=== PATIENT | male | born 1960 | race Caucasian/White ===

== ENCOUNTER → 2018-12-06 11:43 | Outpatient (CLI) | payer OTHER, SELFPAY ==
[2018-12-06 12:48] LABS: HEMOLYSIS < 15 (0-50); Potassium 4.8 mmol/L (3.4-5.1)
[2018-12-06 12:51] LABS: Alanine Aminotransferase 29 IU/L (21-72); Albumin Globulin Ratio 1.7 (1.0-2.8); Alkaline Phosphatase 61 U/L (38-126); Aspartate Aminotransferase 19 IU/L (17-59); Bilirubin Total 0.5 mg/dL (0.2-1.3); Blood Urea Nitrogen 21 mg/dL (9-20); C-Reactive Protein Quant 1.3 mg/dL (<1.0); Calcium 9.1 mg/dL (8.4-10.2); Carbon Dioxide 28 mmol/L (22-32); Chloride 105 mmol/L (98-107); Estimated Glomerular Filt Rate > 60.0 mL/min (>60); Globulin 2.4 g/dL (1.7-4.1); Glucose 92 mg/dL (70-100); Sodium 141 mmol/L (137-145); Total Protein 6.4 g/dL (6.3-8.2)
[2018-12-06 13:18] LABS: TSH w/ Reflex to FT4 1.95 uIU/mL (0.47-4.68)
[2018-12-10 21:58] LABS: Testosterone Free 39.9 pg/mL (35.0-155.0); Testosterone Total 360 ng/dL (250-1100)
== END ==
PROVIDERS: PCP Internal Medicine; Visit Provider Internal Medicine
DX: I10 Essential (primary) hypertension (principal); M06.9 Rheumatoid arthritis, unspecified; N52.9 Male erectile dysfunction, unspecified
CPT/HCPCS: 36415; 80053; 84402; 84403; 84443; 86140

== ENCOUNTER → 2021-09-01 08:32 | Outpatient (CLI) | payer OTHER, SELFPAY ==
[2021-09-01 09:46] LABS: Alanine Aminotransferase 22 IU/L (<50); Albumin 4.3 g/dL (3.5-5.0); Albumin Globulin Ratio 2.2 (1.0-2.8); Alkaline Phosphatase 71 U/L (38-126); Aspartate Aminotransferase 28 IU/L (17-59); BUN Creatinine Ratio 20.8 (6-22); Bilirubin Total 1.2 mg/dL (0.2-1.3); Blood Urea Nitrogen 16 mg/dL (9-20); Calcium 9.1 mg/dL (8.4-10.2); Carbon Dioxide 26 mmol/L (22-32); Chloride 101 mmol/L (98-107); Cholesterol 163 mg/dL (140-199); Estimated Glomerular Filt Rate > 60.0 mL/min (>60); Glucose 103 mg/dL (80-110); HDL Cholesterol 70 mg/dL (40-60); HEMOLYSIS < 15 (0-50); LDL Cholesterol Calculated 79 mg/dL (<100); Potassium 4.6 mmol/L (3.4-5.1); Sodium 135 mmol/L (137-145); Total Protein 6.3 g/dL (6.3-8.2); Triglycerides 69 mg/dL (35-150)
[2021-09-01 10:17] LABS: Prostate Specific Antigen Scrn 2.28 ng/mL (0.1-4.0)
== END ==
PROVIDERS: Family Provider Internal Medicine; PCP Internal Medicine; Referring Provider Internal Medicine; Visit Provider Internal Medicine
DX: I10 Essential (primary) hypertension (principal); I48.91 Unspecified atrial fibrillation; R73.9 Hyperglycemia, unspecified; Z12.5 Encounter for screening for malignant neoplasm of prostate
CPT/HCPCS: 36415; 80053; 80061; G0103

== ENCOUNTER 2021-11-15 07:04 | Day surgery (SDC) | payer OTHER, SELFPAY ==
[2021-11-15] VITALS (7 sets, daily range): BP systolic 122–162; BP diastolic 63–93; PULSE 66–103; RESP 13–17; TEMP 36.3–36.8; O2SAT 93–98; BMI 33.4
--- NOTE | 2021-11-15 | PATH_ITS ---
[facility] Accession Number: [id number] . 01 Material submitted: . colon - ASCENDING COLON POLYP . 01 Clinical history: . SCREENING COLONOSCOPY . 02 Diagnosis: Ascending Colon Polyp, Biopsy: Tubular adenoma. MRV 11/17/2021 1152 Local . 02 Electronically signed: . Toni Dodson MD, PhD, Pathologist NPI- [id number] . 01 Gross description: . ASCENDING COLON POLYP: Received in formalin is 1 fragment(s) of enrique, soft tissue measuring 0.2 x 0.2 x 0.2 cm submitted entirely in 1 cassette(s) /MICHELE 11/16/2021 1909 Local . 02 Pathologist provided ICD-10: D12.2 . 02 CPT . 747644 Specimen Comment: A duplicate report has been generated due to demographic updates. Performed at: [facility] [address] [id number] MD Drew Rascon MD Phone: [phone] [facility] [address] [place], [place] [id number] MD Kezia Gold MD Phone: [phone]
[2021-11-15 07:32] LABS: COVID19 -Nasal RAPID Negative (Negative)
[2021-11-15] MEDS: LACTATED RINGERS 1,000 ML 42 ML IV (08:09)
--- NOTE | 2021-11-15 08:15 | PM.HP.1 ---
History of Present Illness History of Present Illness Date Patient Seen: 11/15/21 Time Patient Seen: 08:15 Chief complaint: SCREENING COLONOSCOPY Narrative: The patient presents for colorectal sreening. He had previous colonoscopy 10 years ago which demonstrated benign polyps. No personal or family history of colon cancer. On further history denies any recent gastrointestinal symptoms. No nausea, vomiting, abdominal pain, loss of appetite, unexplained weight loss, change in bowel habits, diarrhea, constipation, melena, hematochezia, or bright red blood per rectum. Patient History Medical History (Updated 11/15/21 @ 07:27 by Laurence Lam RN) Anxiety Atrial fibrillation (06/11/11) Atrial flutter (01/27/17) Cough Depression Depression as late effect of cerebrovascular accident (CVA) Dysthymia (06/11/11) Hyperglycemia (01/27/17) Hypertension (05/26/14) Kidney stone Rheumatoid arthritis (01/27/17) Skin cancer Sleep apnea SOB (shortness of breath) Surgical History History of cardiac radiofrequency ablation (RFA) History of carpal tunnel repair Family & Social History Social History: household members spouse Tobacco & Substance use: Tobacco type cigarettes Smoking Status Former smoker alcohol intake current alcohol intake frequency 3 or more drinks per day Substance Use Type does not use Meds Home Medications and Allergies Home Medications Medication Instructions Recorded Confirmed Type cholecalciferol (vitamin D3) 50 2,000 unit PO DAILY 04/05/18 11/15/21 History mcg (2,000 unit) capsule sildenafil 100 mg tablet (Viagra) See Rx Instructions PO ONCE PRN #5 01/04/19 09/07/21 Rx tab valacyclovir 1 gram tablet 1,000 mg PO TID #30 tab 01/04/19 09/07/21 Rx alprazolam 0.5 mg tablet 0.5 - 1 mg PO Q6HP PRN #10 tab 09/07/21 11/15/21 Rx atenolol 50 mg tablet 25 mg PO DAILY tab 09/07/21 11/15/21 History dabigatran etexilate 150 mg 150 mg PO BID cap 09/07/21 11/15/21 History capsule (Pradaxa) flecainide 150 mg tablet 150 mg PO BID tab 09/07/21 11/15/21 History folic acid 1 mg tablet 1 mg PO DAILY tab 09/07/21 11/15/21 History hydroxychloroquine 200 mg tablet 400 mg PO DAILY tab 09/07/21 11/15/21 History methotrexate sodium 2.5 mg tablet See Rx Instructions .ROUTE .COMPLEX 09/07/21 11/15/21 History sulfasalazine 500 mg tablet 1 g PO BID tab 09/07/21 09/07/21 History Allergies Allergy/AdvReac Type Severity Reaction Status Date / Time Naproxen Allergy Intermediate RASH Uncoded 11/15/21 07:28 Exam Vital Signs (past 8 hours): - 11/15/21 07:59 Temperature 98.2 F Pulse Rate 103 H Respiratory Rate 15 Blood Pressure 162/63 H Pulse Oximetry 98 Oxygen Delivery Method Room Air Narrative Exam Narrative: Constitutional-he is oriented to person, place and time. No apparent distress Cardiovascular- regular rate, no peripheral edema Pulmonary-unlabored respiratory effort, no audible wheezing Abdominal-soft, non-tender, non-distended Musculoskeletal-no cyanosis or clubbing Skin-warm and dry Objective Labs Labs: Laboratory Results - last 24 hr 11/15/21 07:16 SARS-CoV-2 (PCR) Negative Assessment & Plan Assessment & Plan narrative: The patient requires colorectal screening and colonoscopy is recommended. Technical details were discussed. Risks, benefits, alternatives explained. Risks including but not limited to myocardial infarction, aspiration, bleeding, pain, missed lesion, incomplete examination, need for further radiographic studies, colonic perforation, and need for major abdominal surgery were discussed. All questions were answered to their satisfaction, and they are in agreement with this plan. Time Spent With Patient Critical Care time: I spent a total of [] minutes of critical care time on this patient's care today; this time is exclusive of procedural time.
[2021-11-15] MEDS: MIDAZOLAM 5 MG/5 ML VIAL IV (08:24)
[2021-11-15] MEDS: fentaNYL 250 MCG/5 ML INJ IV (08:32)
--- NOTE | 2021-11-15 08:44 | PM.OP.COLON ---
Operative Date/Time/Diagnoses Date of procedure: 11/15/21 Time of procedure: 08:44 Pre-op diagnosis: screening colonoscopy Post-op diagnosis: other (Colonic polyp) Procedure & Clinicians Study performed: Colonoscopy and polypectomy Same procedure as scheduled: Yes Indications: Screening Surgeon: Julian Degroot Procedure Notes Procedure in detail: Medications: Conscious sedation using 5 mg IV midazolam and 150 mcg IV of fentanyl The history and physical was performed/updated and the patient is ASA class is 2. The procedure was discussed in detail with the patient. Potential risks complications including infection, bleeding, missed diagnosis, perforation, need for surgery, and were explained. Their questions were answered and informed consent was obtained. Patient was brought to the procedure room and placed standard monitoring equipment. The patient's vital signs were monitored continuously throughout the entire procedure. Prior to starting time-out was performed. The patient was placed in the left lateral recumbent position. Procedural sedation was administered. Examination began with a thorough inspection of the perianal area there was no evidence of fissures, fistulae, external hemorrhoids or cutaneous malignancy. The colonoscopy scope was then placed into the anal canal and was advanced to the cecum, which was identified by the ileocecal valve, the appendiceal orifice and the confluence of the taenia. The scope was then slowly withdrawn examining colon thoroughly in all directions, irrigating it of any residual stool. FINDINGS 1. Ascending colon-5 mm polyp removed with biopsy forceps 2. Sigmoid diverticulosis 3. Grade 1-2 internal hemorrhoids The patient tolerated the procedure well. They will be discharged once criteria are met. The prep was of good/excellent quality. The withdrawl time was 9 minutes. The sedation time was 21 minutes. Specimen(s): other (Ascending colon) Complications: none Impression: Colonic polyp Post-procedure Recommendations: Colonoscopy in 5 years Disposition: same day surgery
== END 2021-11-15 09:46 | disposition home or self-care (01) ==
PROVIDERS: Family Provider Internal Medicine; PCP Internal Medicine; Referring Provider Surgery; Visit Provider Surgery
PROC: 0DJD8ZZ Inspection of Lower Intestinal Tract, Via Natural or Artificial Opening Endoscopic (ICD-10-PCS; CPT 45378; principal; 2021-11-15 08:30)
DX: Z12.11 Encounter for screening for malignant neoplasm of colon (principal); I48.91 Unspecified atrial fibrillation; F32.9 Major depressive disorder, single episode, unspecified; F41.9 Anxiety disorder, unspecified; I10 Essential (primary) hypertension; M06.9 Rheumatoid arthritis, unspecified; G47.30 Sleep apnea, unspecified; Z20.822 Contact with and (suspected) exposure to COVID-19; K64.1 Second degree hemorrhoids; K57.30 Diverticulosis of large intestine without perforation or abscess without bleeding; D12.2 Benign neoplasm of ascending colon
CPT/HCPCS: 45380; 87635; 99152; J2250; J3010

== ENCOUNTER → 2023-04-17 10:49 | Outpatient (CLI) | payer OTHER, SELFPAY ==
[2023-04-17 12:07] LABS: Prostate Specific Antigen Scrn 3.41 ng/mL (0.1-4.0)
== END ==
PROVIDERS: Family Provider Internal Medicine; PCP Internal Medicine; Referring Provider Internal Medicine; Visit Provider Internal Medicine
DX: Z12.5 Encounter for screening for malignant neoplasm of prostate (principal)
CPT/HCPCS: 36415; G0103

== ENCOUNTER → 2024-11-08 10:25 | Outpatient (CLI) | payer OTHER, SELFPAY ==
[2024-11-08 12:54] LABS: Influenza A - CEPHEID Flu A NEGATIVE (NEGATIVE); Influenza B - CEPHEID Flu B NEGATIVE (NEGATIVE); Respiratory Syncytial Virus Negative (Negative)
[2024-11-08 13:03] LABS: COVID-19 CEPHEID 4-PLEX PCR Negative (Negative)
== END ==
PROVIDERS: Family Provider Internal Medicine; PCP Internal Medicine; Visit Provider Nurse Practitioner Family
DX: R05.1 Acute cough (principal)
CPT/HCPCS: 0241U

== ENCOUNTER → 2024-11-11 10:26 | Outpatient (CLI) | payer OTHER, SELFPAY ==
--- NOTE | 2024-11-11 10:27 | DI.RAD.S_ITS ---
PROCEDURE: XR CHEST 2V INDICATIONS: r/o PNA TECHNIQUE: 2 views of the chest were acquired. COMPARISON: None. FINDINGS: Surgical changes and devices: None. Lungs and pleura: Lungs are clear. No pleural effusions or pneumothorax. Mediastinum: Mediastinal contours are normal. Heart size is normal. Bones and chest wall: No suspicious bony abnormalities. Soft tissues appear unremarkable. IMPRESSION: No acute cardiopulmonary abnormality is seen. Dictated by: Bobby Sam M.D. on 11/11/2024 at 11:32 Approved by: Bobby Sam M.D. on 11/11/2024 at 11:32
== END ==
LOC: RAD 10:27
PROVIDERS: Family Provider Internal Medicine; PCP Internal Medicine; Referring Provider Nurse Practitioner Family; Visit Provider Nurse Practitioner Family
DX: I48.91 Unspecified atrial fibrillation (principal)
CPT/HCPCS: 71046